=== PATIENT | male | born 1980 | race African-American/Black ===

== ENCOUNTER 2018-04-02 17:20 | Emergency (ER) | payer OTHER, SELFPAY ==
[2018-04-02 17:24] VITALS: BP 152/94; PULSE 77; RESP 20; TEMP 36.9; O2SAT 98; BMI 31.0
--- NOTE | 2018-04-02 18:19 | ED.MALEGU ---
HPI - Male Genitourinary <AZEB Almonte - Last Filed: 04/02/18 22:16> General Chief complaint: Urogenital-Male Stated complaint: TESTICULAR PAIN,DISCHARGE Time Seen by Provider: 04/02/18 17:48 Source: patient Mode of arrival: ambulatory Limitations: no limitations History of Present Illness HPI Narrative: Patient presents with chief complaint of penile discharge. He is concerned about sexually transmitted infection as he thinks he might have been exposed. He currently denies any testicular pain at this point time, denies any testicular swelling. He denies any fevers, nausea, vomiting, diarrhea, chest pain or shortness of breath. He is requesting STI testing. Denies any rashes or sores. Related Data Home Medications Medication Instructions Recorded Confirmed No Known Home Medications 04/02/18 04/02/18 Allergies Allergy/AdvReac Type Severity Reaction Status Date / Time No Known Drug Allergies Allergy Verified 04/02/18 20:16 Review of Systems <AZEB Almonte - Last Filed: 04/02/18 22:16> Review of Systems GENERAL: Denies chills, fatigue, malaise, fever, sweats. HEENT: Denies sinus pain, ear pain, sore throat, difficulty swallowing, dizziness. RESPIRATORY: Denies dyspnea, cough, wheezing, hemoptysis, sputum. CARDIOVASCULAR: Denies chest pain, palpitations, orthopnea, edema, GASTROINTESTINAL: Denies nausea, vomiting, abdominal pain, diarrhea, constipation, melena. : See HPI MUSCULOSKELETAL: denies weakness, joint pain, or bony pain SKIN: Denies rash, skin lesions, or other NEUROLOGIC: Denies weakness, headache, numbness, change in speech, confusion, seizures, incoordination. PSYCHIATRIC: No concerning psychosocial issues. 12 point review of systems is negative except for those stated above Exam <CHEYENNE Almonte - Last Filed: 04/02/18 22:16> Narrative Exam Narrative: GENERAL: This is a well-nourished, well-developed patient, appears anxious HEAD: Atraumatic. Normocephalic. No temporal or scalp tenderness. EYES: Pupils equal round and reactive. Extraocular motions intact. No scleral icterus. No injection or drainage. ENT: Nose without bleeding, purulent drainage or septal hematoma. Throat without erythema, tonsillar hypertrophy or exudate. Uvula midline. Airway patent. NECK: Trachea midline. No JVD or lymphadenopathy. Supple, nontender, no meningeal signs. CARDIOVASCULAR: Regular rate and rhythm without murmurs, gallops, or rubs. RESPIRATORY: Clear to auscultation. Breath sounds equal bilaterally. No wheezes, rales, or rhonchi. GASTROINTESTINAL: Abdomen soft, non-tender, nondistended. No hepato-splenomegaly, or palpable masses. No guarding. No CVA tenderness bilaterally. No suprapubic pain to palpation. : exam done with Linda PIERRE as pipeline integrity engineer. Slight penile discharge noted. Cremasteric reflexes intact bilaterally. No lesions or rashes or wounds evident. No testicular pain or swelling. EXTREMITIES: No clubbing, cyanosis, or edema. No joint tenderness, effusion, or edema noted. BACK: Nontender without deformity or crepitance. No flank tenderness. NEURO: AOx3. SKIN: No rash or erythema. Initial Vital Signs Initial Vital Signs: Vital Signs Temperature 98.5 F 04/02/18 17:24 Pulse Rate 77 04/02/18 17:24 Respiratory Rate 20 04/02/18 17:24 Blood Pressure 152/94 H 04/02/18 17:24 Pulse Oximetry 98 04/02/18 17:24 <Ankush Saucedo MD - Last Filed: 04/03/18 07:44> Initial Vital Signs Initial Vital Signs: Vital Signs Temperature 98.5 F 04/02/18 17:24 Pulse Rate 77 04/02/18 17:24 Respiratory Rate 20 04/02/18 17:24 Blood Pressure 152/94 H 04/02/18 17:24 Pulse Oximetry 98 04/02/18 17:24 Course <CHASITY Almonte-BC - Last Filed: 04/02/18 22:16> Hospital Course: Patient presented with request for STI testing a complaint of penile discharge. He denies any testicular pain or swelling at this point time. He denies any fever, nausea, vomiting or diarrhea. STI testing was completed via urine. When urine test came back for gonorrhea, I canceled the swab order. Patient was treated with azithromycin as well as IM ceftriaxone as per up-to-date recommendations. Department of Health forms were filled out and partner treatment was initiated as per protocol. Discussed at length with patient follow-up of worsening, no improvement of symptoms. Also discussed follow-up if testicular pain or testicular swelling or fever. Patient a questions or concerns upon discharge. Orders Ordered: Discontinued Medications Azithromycin (Zithromax) 1,000 mg PO NOW ONE Stop: 04/02/18 20:17 Last Admin: 04/02/18 20:38 Dose: 1,000 mg Ceftriaxone Sodium (Rocephin) 250 mg IM NOW ONE Stop: 04/02/18 20:17 Last Admin: 04/02/18 20:39 Dose: 250 mg Vital Signs - 8 hr 04/02/18 17:24 Temperature 98.5 F Pulse Rate 77 Respiratory Rate 20 Blood Pressure 152/94 H Pulse Oximetry 98 <Ankush Saucedo MD - Last Filed: 04/03/18 07:44> Orders Ordered: Discontinued Medications Azithromycin (Zithromax) 1,000 mg PO NOW ONE Stop: 04/02/18 20:17 Last Admin: 04/02/18 20:38 Dose: 1,000 mg Ceftriaxone Sodium (Rocephin) 250 mg IM NOW ONE Stop: 04/02/18 20:17 Last Admin: 04/02/18 20:39 Dose: 250 mg Vital Signs - 8 hr 04/02/18 17:24 Temperature 98.5 F Pulse Rate 77 Respiratory Rate 20 Blood Pressure 152/94 H Pulse Oximetry 98 MDM - Male Genitourinary <CHEYENNE Almonte - Last Filed: 04/02/18 22:16> Lab Data Lab Results 04/02/18 04/02/18 04/02/18 Range/Units 18:15 18:15 18:15 Urine Color Yellow Urine Appearance Clear Urine pH 7.0 (4.5-8.0) Ur Specific [place] 1.020 (1.000-1.035) Urine Protein Negative (Negative) Urine Glucose (UA) Negative (Normal) g/dL Urine Ketones Trace H (NEGATIVE) Urine Occult Blood Negative (Negative) Urine Nitrate Negative (Negative) Urine Bilirubin Negative (NEGATIVE) Urine Urobilinogen 1.0 (0.2) E.U./dL Ur Leukocyte Esterase Negative (NEGATIVE) Urine RBC None seen (0-5/HPF) Urine WBC None seen (0-5/HPF) Urine Bacteria None seen (None) Ur Culture Indicated? Cult not indicated Micro UA Comment Microscopic normal C.trachomatis RNA (TMA) Cancelled Ur Chlamydia DNA (PCR) Not detected N.gonorrhoeae RNA (TMA) Cancelled N gonorrhoeae DNA (PCR) Detected H MDM Narrative Medical decision making narrative: Patient presented with chief complaint of penile discharge and concern for STI exposure. He tested positive for gonorrhea. He was treated as per up-to-date recommendations with azithromycin 1 g as well as to 250 mg IM ceftriaxone. Discussed at length with patient safe sex as well as informing partners of diagnosis. Department of Health paperwork was filled out. Patient had no questions or concerns upon discharge. Will seek care if no improvement, worsening testicular pain or swelling. <Ankush Saucedo MD - Last Filed: 04/03/18 07:44> Lab Data Lab Results 04/02/18 04/02/18 04/02/18 Range/Units 18:15 18:15 18:15 Urine Color Yellow Urine Appearance Clear Urine pH 7.0 (4.5-8.0) Ur Specific [place] 1.020 (1.000-1.035) Urine Protein Negative (Negative) Urine Glucose (UA) Negative (Normal) g/dL Urine Ketones Trace H (NEGATIVE) Urine Occult Blood Negative (Negative) Urine Nitrate Negative (Negative) Urine Bilirubin Negative (NEGATIVE) Urine Urobilinogen 1.0 (0.2) E.U./dL Ur Leukocyte Esterase Negative (NEGATIVE) Urine RBC None seen (0-5/HPF) Urine WBC None seen (0-5/HPF) Urine Bacteria None seen (None) Ur Culture Indicated? Cult not indicated Micro UA Comment Microscopic normal C.trachomatis RNA (TMA) Cancelled Ur Chlamydia DNA (PCR) Not detected N.gonorrhoeae RNA (TMA) Cancelled N gonorrhoeae DNA (PCR) Detected H Discharge Plan Departure Patient Disposition: Home, Self-Care Clinical Impression: Gonorrhea Discharge Date/Time: 04/02/18 21:21 Interventions: ED Discharge Assessment Last Done: 04/02/18 21:20 Instructions: Facts About Sexually Transmitted Infections, How to Detect and Treat STDs, DI for Gonorrhea Activity Restrictions/Additional Instructions: You were treated today for gonorrhea. He was treated with an antibiotic injection as well as an oral antibiotic. Please be re-evaluated if your symptoms persist, or if you have additional testicular pain or swelling. Please make your sexual partners aware of your diagnosis so they can be treated as well. Follow up with primary care if new or worsening symptoms. Come back to emergency department if needed. Prescriptions: No Action No Known Home Medications RF: 0 <Ankush Saucedo MD - Last Filed: 04/03/18 07:44> Cosign ED Attending Jeremi Attestation: I was immediately available in the department for consultation. Documentation has been reviewed. I agree with assessment and plan.
--- NOTE | 2018-04-02 18:22 | PC.NURSE ---
assisted Radha VALDEZ with genital exam. swab and urine collected and sent for eval.
[2018-04-02 18:37] LABS: Bacteria Urine None Seen; RBC Urine None Seen (0-5/HPF); WBC Urine None Seen (0-5/HPF)
[2018-04-02 18:39] LABS: Appearance Urine UA CLEAR; Bilirubin Urine UA NEGATIVE (NEGATIVE); Color Urine UA YELLOW; Glucose Urine UA NEGATIVE (Normal); Ketones Urine UA TRACE (NEGATIVE); Leukocyte Esterase Urine UA NEGATIVE (NEGATIVE); Nitrite Urine UA Negative (Negative); Occult Blood Urine UA NEGATIVE (Negative); Protein Urine UA NEGATIVE (Negative)
[2018-04-02 19:02] LABS: Culture Indicated Urine Cult Not Indicated; Urine Comments Microscopic Normal
[2018-04-02 20:08] LABS: Urine Chlamydia NOT DETECTED
[2018-04-02] MEDS: AZITHROMYCIN 250 MG TABLET 1000 MG PO (20:38)
[2018-04-02] MEDS: cefTRIAXone 500 MG VIAL 250 MG IM (20:39)
--- NOTE | 2018-04-03 09:08 | PC.NURSE ---
Recieved report from lab w/ + Gonorrhea. Known upon d/c. Pt treated prior to d/c from ED. Health department notified by fax last night.
[2018-04-03 09:45] LABS: Urine N gonorrhoeae DETECTED
== END 2018-04-02 21:21 | disposition home or self-care (01) ==
PROVIDERS: Emergency Provider Nurse Practitioner Family
DX: A54.9 Gonococcal infection, unspecified (principal)
CPT/HCPCS: 81001; 87491; 87591; 96372; 99282; 99283; J0696